=== PATIENT | male | born 1980 | race Caucasian/White ===

== ENCOUNTER → 2021-01-16 15:22 | Outpatient (BNVA) | payer BC, SELFPAY | PROVIDERS: Family Provider Nurse Practitioner Family; Visit Provider Surgery | DX: K42.9 Umbilical hernia without obstruction or gangrene (principal); Z20.822 Contact with and (suspected) exposure to COVID-19 | CPT/HCPCS: 87635 ==

== ENCOUNTER 2021-01-21 08:27 | Day surgery (SDC) | payer BC, SELFPAY ==
[2021-01-18 10:25] VITALS: BMI 32.8
[2021-01-21] VITALS (12 sets, daily range): BP systolic 127–179; BP diastolic 86–110; PULSE 52–88; RESP 9–21; TEMP 36.1–36.5; O2SAT 95–100
[2021-01-21] MEDS: sodium chloride 0.9% 1,000 ML 30 ML IV (08:55)
[2021-01-21] MEDS: acetaminophen 1,000 MG/100 ML PIGGYBACK 400 MG IV (08:55)
--- NOTE | 2021-01-21 09:10 | ANES.PREANE2 ---
Documented by User: Crystal Yan CRNA 01/21/21 09:41 Pre-Anesthetic Assessment Pre-Anesthetic Assessment: Height/Weight: Height 6 ft 3 in Weight 119.295 kg Temp Pulse Resp BP Pulse Ox 97.7 F 52 L 18 147/107 98 01/21/21 08:39 01/21/21 08:39 01/21/21 08:39 01/21/21 08:39 01/21/21 08:39 Preop Diagnosis: Umbilical hernia Proposed Procedure: Operation Date: 01/21/21 10:05 Proposed Procedures p Open Umbilical Hernia Repair w/ Mesh 39915 K42.9(Not Applicable) - Stefan Vargas MD Was Beta Benjamin taken within 24 hours: N/A Was Clonidine taken within 24 hours: N/A Last intake: Intake Last Liquid Date 01/20/21 Last Liquid Time 21:30 Last Solid Date 01/20/21 Last Solid Time 21:30 Social: Social History: No alcohol and No tobacco Exam: Pre-Anes Outpt Exam: alert, oriented x 3, clear to auscultation bilaterally and regular rate & rhythm Airway: Submandibular: WNL Cervical ROM: WNL MP: 2 Dentition: Full History/ROS: No significant history except as noted and No significant complaints Pulmonary: Comments: snoring CV/HEM: CV/HEM: None reported : : None reported Hepatic: Hepatic: None reported GI: GI: None reported Metabolic: Metabolic: None reported Musc/skel: Musc/skel: None reported Neuropsych: Neuropsych: None reported Anesthetic Plan: ASA status: 1 Anesthesia: Anesthesia Evaluation and General Risk of > 500 ml blood loss (7ml/kg in children): No Meds/Allergies Current Medications: Current Medications Generic Name Dose Route Start Last Admin Trade Name Freq PRN Reason Stop Dose Admin Sodium Chloride 1,000 mls @ 30 ml s/hr 01/21/21 08:45 01/21/21 08:55 Sodium Chloride 0.9% IV 01/22/21 08:44 30 mls/hr .Q24H ALEXUS Administration PFSH Anesthesia PFSH: Medical History Umbilical hernia without mention of obstruction or gangrene Surgical History H/O skin graft Social History Alcohol intake: current Alcohol intake frequency: holidays/special occasions only Desire information about substance/drug rehabilitation?: No History of recent travel: No Current gender identity: Male Data Anesthesia Cardiac Studies: No Data to Display Documented by User: Kevin Whittaker 01/21/21 10:50 PFSH Anesthesia PFSH: Medical History Umbilical hernia without mention of obstruction or gangrene Surgical History H/O skin graft Social History Alcohol intake: current Alcohol intake frequency: holidays/special occasions only Desire information about substance/drug rehabilitation?: No History of recent travel: No Current gender identity: Male Data Anesthesia Cardiac Studies: No Data to Display
--- NOTE | 2021-01-21 10:04 | W.PM.OPSUD ---
Surgery/Procedure H&P Update DATE OF PROCEDURE: January 21, 2021 DATE H&P PERFORMED: 01/03/21 H&P UPDATE INFORMATION: I have reviewed H&P completed within last 30 days, I have examined patient prior to procedure and No changes to prior documentation PREOP DIAGNOSIS: Umbilical hernia PRIMARY INDICATION FOR PROCEDURE: The same PLANNED PROCEDURE: Operation Date: 01/21/21 10:05 Proposed Procedures p Open Umbilical Hernia Repair w/ Mesh 77530 K42.9(Not Applicable) - Stefan Vargas MD
[2021-01-21] MEDS: lidocaine 2% INJ 20 mL INJECTION (10:56)
--- NOTE | 2021-01-21 11:48 | P.OP_ITS ---
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 Procedure: Patient was identified in holding area and the site of the hernia was marked by me ,Patient was brought then to the operating room, general endotracheal anesthesia was administered by the anesthesia provider.prophylactic IV antibiotics were given per protocol Time-out was done verifying the patient's name/date of /planned procedure and destination after the procedure, all were in agreement. SCDs confirmed to be functioning, preoperative antibiotics administered per protocol, and beta paula protocol was confirmed. Prep and drape of the abdomen was done under the usual sterile technique. I started by infraumbilical skin incision, I was able to identify the incarcerated hernia sac and contents, dissection was carried all the way down to the fascia, hernia sac was then opened and the sac was excised in addition to excess omental tissues.Tissues excise sent for permanent pathology. I was able to free the overlying fat on top of the fascia, facilitate primary closure At that point the fascial defectx2 was about inch in diameter, after freeing all the adhesions, under direct visualization I was able to use #1 PDS to repair the defect primarily after dissection turned it to 1 defect., as figure of 8 sutures, thorough irrigation of the wound was then achieved and hemostasis. Followed by 2-0 Vicryl, followed by deep dermal interrupted stitches, followed by 3-0 Vicryl, then 4-0 Monocryl was used for subcuticular closure of the skin incision. Lidocaine 2% was used for local infiltration to help postoperative pain Dermabond was then applied Counts of sponges, needles and instruments were completed at the end of the procedure Patient tolerated the procedure well and was taken to the recovery area in stable condition I was present for the whole entire procedure
[2021-01-21] MEDS: meperidine 50 mg/mL INJ 12.5 MG IVP (12:11)
[2021-01-21] MEDS: fentaNYL 50 mcg/mL INJ 2mL IVP (12:18)
[2021-01-21] MEDS: HYDROcodone-acetaminophen 5-325 mg Tablet 1 TAB PO (12:43)
--- NOTE | 2021-01-21 15:38 | ANE.PACU2 ---
Inpatient post-anesthesia follow up: Airway intact: Yes Vital signs: Temperature 97.1 F Pulse Rate 62 Respiratory Rate 16 Blood Pressure 127/86 Pulse Oximetry 95 Oxygen Delivery Me thod Room Air Oxygen Flow Rate 4 Fraction of Inspir ed Oxygen Hydration adequate: Yes Nausea and vomiting: No Pain level: 2 Mental status: Baseline
== END 2021-01-21 13:05 | disposition home or self-care (01) ==
PROVIDERS: Visit Provider Surgery
PROC: (CPT 49587; principal; 2021-01-21 09:55)
DX: K42.0 Umbilical hernia with obstruction, without gangrene (principal)
CPT/HCPCS: 49587; 88302; J0690; J1170; J1885; J2175; J2405; J2704; J3010; J3490; J7030

== ENCOUNTER → 2024-01-27 15:53 | Outpatient (BNVA) | payer BC, SELFPAY | PROVIDERS: Visit Provider Nurse Practitioner | DX: M77.32 Calcaneal spur, left foot (principal); M76.62 Achilles tendinitis, left leg; M79.672 Pain in left foot | CPT/HCPCS: 73630 ==

== ENCOUNTER → 2024-02-09 09:35 | Outpatient (BNVA) | payer BC, SELFPAY | PROVIDERS: Visit Provider Podiatrist Foot & Ankle Surgery | DX: M79.672 Pain in left foot (principal); M72.2 Plantar fascial fibromatosis; M65.28 Calcific tendinitis, other site | CPT/HCPCS: 73630 ==